=== PATIENT | male | born 1945 | race Caucasian/White ===

== ENCOUNTER 2024-05-18 16:51 | Emergency (ER) | payer MEDICARE ==
[~2024-05-18] VITALS: Ht 175.3 cm; Wt 81.9 kg
[2024-05-18 20:07] VITALS: BP 129/78; TEMP 97.8; O2SAT 97
== END 2024-05-18 20:07 | disposition home or self-care (01) ==
LOC: M ED 16:51
DX: T82.838A Hemorrhage due to vascular prosthetic devices, implants and grafts, initial encounter (principal); J44.9 Chronic obstructive pulmonary disease, unspecified; G47.33 Obstructive sleep apnea (adult) (pediatric); F03.90 Unspecified dementia, unspecified severity, without behavioral disturbance, psychotic disturbance, mood disturbance, and anxiety; Z86.79 Personal history of other diseases of the circulatory system; Z79.82 Long term (current) use of aspirin; Z79.01 Long term (current) use of anticoagulants